=== PATIENT | female | born 1985 | race Caucasian/White ===

== ENCOUNTER 2022-12-19 11:22 | Emergency (ER) | payer OTHER, SELFPAY ==
[2022-12-19 11:29] VITALS: BP 140/70; PULSE 85; RESP 16; TEMP 36.6; O2SAT 98; BMI 35.5
--- NOTE | 2022-12-19 12:11 | ED_ITS ---
HPI - Back Pain/Injury <Blanca Velasco PA-C - Last Filed: 12/19/22 14:06> General Chief Complaint: Back Pain/Injury Stated Complaint: Lower Left back pain Time Seen by Provider: 12/19/22 11:59 Source: patient History of Present Illness HPI Narrative: Patient is a 36-year-old female with acute on chronic back pain. She reports many years of back pain. Had an MRI several years ago that showed 3 bulging discs including was pushing on the sciatic nerve. This most recent flare of pain has been about 1 week, she has been taking tramadol and cyclobenzaprine left over from a previous prescription. Pain does not seem to be getting better in the medicines are not helping. She is also taking ibuprofen. She denies any loss of bowel or bladder control, saddle anesthesia, weakness. She does not recall a specific injury or movement that precipitated this round of pain. Related Data Home Medications Medication Instructions Recorded Confirmed etonogestrel 0.12 mg-ethinyl vag ring vaginal 10/31/22 10/31/22 estradiol 0.015 mg/24 hr vaginal ring (EluRyng) Previous Rx's Medication Instructions Recorded methocarbamol 500 mg tablet 1,500 mg (3 x 500 mg) PO TID PRN 12/19/22 back pain #30 tabs prednisone 50 mg tablet 50 mg PO DAILY back pain #4 tabs 12/19/22 Allergies Allergy/AdvReac Type Severity Reaction Status Date / Time No Known Drug Allergies Allergy Unverified 10/31/22 13:42 Review of Systems <Blanca Velasco PA-C - Last Filed: 12/19/22 14:06> Review of Systems ROS Unobtainable: All systems reviewed & are unremarkable except as noted in HPI and below Patient History <Blanca Velasco PA-C - Last Filed: 12/19/22 14:06> Medical History Chronic back pain Social History Smoking Status: Never smoker Smoking Status: Never smoker Substance Use Type: does not use Exam <Blanca Velasco PA-C - Last Filed: 12/19/22 14:06> Narrative Exam Narrative: GENERAL: 36 year old patient appears stated age. Well-developed patient, in mild distress. NEURO: AOx3. 5/5 strength in bilateral lower extremities, ambulates with discomfort. HEAD: Atraumatic. Normocephalic. EYES: Pupils equal round and reactive. Extraocular motions intact. No scleral icterus. No injection or drainage. ENT: Nose without bleeding or purulent drainage. Airway patent. RESPIRATORY: No distress, no increased work of breathing SPINE: No midline tenderness or step-offs. Left-sided paraspinal tenderness to palpation. EXTREMITIES: No edema or joint tenderness. SKIN: No rash or erythema of visible areas Initial Vital Signs Initial Vital Signs: Vital Signs Temperature 98 F 12/19/22 11:29 Pulse Rate 85 12/19/22 11:29 Respiratory Rate 16 12/19/22 11:29 Blood Pressure 140/70 12/19/22 11:29 Pulse Oximetry 98 12/19/22 11:29 Oxygen Delivery Method Room Air 12/19/22 11:29 <Nelson Paul MD - Last Filed: 12/25/22 08:06> Initial Vital Signs Initial Vital Signs: Vital Signs Temperature 98 F 12/19/22 11:29 Pulse Rate 85 12/19/22 11:29 Respiratory Rate 16 12/19/22 11:29 Blood Pressure 140/70 12/19/22 11:29 Pulse Oximetry 98 12/19/22 11:29 Oxygen Delivery Method Room Air 12/19/22 11:29 Course <Blanca Velasco PA-C - Last Filed: 12/19/22 14:06> Orders Ordered: Discontinued Medications Ketorolac Tromethamine (Ketorolac 30 Mg/Ml Vial) 30 mg IM NOW ONE Stop: 12/19/22 12:12 Last Admin: 12/19/22 12:17 Dose: 30 mg Documented By: CTS Vital Signs Vital signs: Vital Signs - 8 hr 12/19/22 11:29 Temperature 98 F Pulse Rate 85 Respiratory Rate 16 Blood Pressure 140/70 Pulse Oximetry 98 Oxygen Delivery Method Room Air <Nelson Paul MD - Last Filed: 12/25/22 08:06> Orders Ordered: Discontinued Medications Ketorolac Tromethamine (Ketorolac 30 Mg/Ml Vial) 30 mg IM NOW ONE Stop: 12/19/22 12:12 Last Admin: 12/19/22 12:17 Dose: 30 mg Documented By: CTS Vital Signs Vital signs: Vital Signs - 8 hr 12/19/22 11:29 Temperature 98 F Pulse Rate 85 Respiratory Rate 16 Blood Pressure 140/70 Pulse Oximetry 98 Oxygen Delivery Method Room Air MDM - Back Pain/Injury <Blanca Velasco PA-C - Last Filed: 12/19/22 14:06> MDM Narrative Medical decision making narrative: Multiple etiologies for patient's symptoms considered including, but not limited to: Musculoskeletal back pain, cauda equina, fracture. Patient reports previous MRI with bulging discs, imaging report not available for me to review today. She is no red flag signs of cauda equina syndrome and no mechanism to suggest fracture. After discussing previous treatments and current treatment, patient is agreeable to trying IM Toradol now, short course of p.o. steroids and changing from cyclobenzaprine to methocarbamol. Advised her to continue taking ibuprofen and/or Tylenol (although no ibuprofen until tomorrow given Toradol) and using ice. She suggested chiropractic has been useful for her in the past. Return precautions discussed. Patient's symptoms improved over duration of stay with above-stated therapies. Findings and discharge diagnosis discussed with patient/family followed by verbalization of understanding Return precautions discussed with patient/family whom verbalize understanding of diagnosis and plan Discharge Plan Departure Patient Disposition: Home Clinical Impression: Low back pain with left-sided sciatica Instructions: DI for Back Pain With Sciatica Activity Restrictions/Additional Instructions: *You have been diagnosed with chronic low back pain in acute flare with left- sided sciatica. As we discussed, sometimes a short course of oral steroids can help calm down the inflammation and irritation of the sciatic nerve and help relieve your symptoms. We will do this, as well as try a different muscle relaxer. You will receive a shot of Toradol while in the emergency department. Please follow-up with your primary care for further management and consideration of referral to physical therapy or chiropractor. *What to do: *Please continue to take your regular medications as directed. [x] New medication prescriptions sent to your pharmacy: [facility] [ ] New medication written as a paper prescription [ ] No new medications given *Please follow up with your primary care provider in 2-3 days, call for an appointment. Let them know you were seen in the Emergency Department and that we ask that you be seen in follow up. We will electronically transmit a record of today's note if your PCP is in our system *If you do not have a primary care provider please contact the [facility] Resource line at [phone]. They will ask some questions about your medical history and help get you set up with a doctor in the community. *Return to Emergency Department if you should have any new, worsening or concerning symptoms, such as [fever greater than 101 F, shaking chills, worsening pain, persistent vomiting or other concerning symptoms]. Prescriptions: New methocarbamol 500 mg tablet 1,500 mg PO TID PRN (Reason: back pain) Qty: 30 0RF prednisone 50 mg tablet 50 mg PO DAILY Qty: 4 0RF No Action etonogestrel-ethinyl estradiol [EluRyng] 0.12-0.015 mg/24 hr ring vaginal Referrals: Provider,Christina RAHMAN [Primary Care Provider] - Stand Alone Forms: Patient Portal/API, Work Release Note ED Sign-out <Nelson Paul MD - Last Filed: 12/25/22 08:06> Cosign ED Attending Jadaature Attestation: I was immediately available in the department for consultation. ?This documentation has been reviewed and I agree with assessment and plan. Supervised by Nelson Paul MD
[2022-12-19] MEDS: KETOROLAC 30 MG/ML VIAL IM (12:17)
== END 2022-12-19 12:21 | disposition home or self-care (01) ==
PROVIDERS: Emergency Provider Physician Assistant
DX: M54.42 Lumbago with sciatica, left side (principal)
CPT/HCPCS: 96372; 99283; J1885

== ENCOUNTER → 2023-01-17 07:27 | Outpatient (CLI) | payer OTHER, SELFPAY ==
--- NOTE | 2023-01-17 07:30 | DI.RAD.S_ITS ---
PROCEDURE: XR LUMBAR SPINE MIN 4V INDICATIONS: BACK PAIN TECHNIQUE: 5 views of the lumbar spine were acquired, including bilateral oblique views. COMPARISON: None. FINDINGS: Bones: 5 nonrib-bearing vertebrae are present. Disc height loss at L5-S1. There is normal bony alignment. No vertebral body compression fractures. No suspicious bony lesions. Soft tissues: Overlying bowel gas pattern is normal. No suspicious soft tissue calcifications. Oblique images: No pars defects. IMPRESSION: Intervertebral disc height loss at L5-S1. Otherwise, normal lumbar spine. Dictated by: Desmond Rodriguez M.D. on 01/17/2023 at 8:49 Approved by: Desmond Rodriguez M.D. on 01/17/2023 at 8:50
== END ==
PROVIDERS: Referring Provider Anesthesiology; Visit Provider Anesthesiology
DX: M51.16 Intervertebral disc disorders with radiculopathy, lumbar region (principal)
CPT/HCPCS: 72110; 99214

== ENCOUNTER → 2023-01-30 12:09 | Outpatient (CLI) | payer OTHER, SELFPAY ==
--- NOTE | 2023-01-30 12:11 | DI.MRI.S_ITS ---
PROCEDURE: MR LUMBAR SPINE WO CON INDICATIONS: Lumbar radiculopathy TECHNIQUE: Noncontrast sagittal T1 spin echo and T2 fast echo, sagittal STIR, and T2 fast spin echo through the lumbar spine. In cases with scoliosis, additional coronal T2 fast spin echo may be performed. COMPARISON: [facility], CR, XR LUMBAR SPINE MIN 4V, 01/17/2023, 7:45. FINDINGS: Image quality: Excellent. Alignment and Curvature: There is normal bony alignment. Bone Marrow: Marrow is of normal overall signal. No acute vertebral body compression fractures. Spinal Cord: Conus medullaris terminates at the L1 level. Visualized cord demonstrates normal signal and size. Paraspinous Soft Tissues: No paravertebral masses. T12-L1: Normal appearance. L1-L2: Normal appearance. L2-L3: Mild facet hypertrophy. No canal stenosis or foraminal stenosis. L3-L4: Mild facet hypertrophy. No canal stenosis or foraminal stenosis. L4-L5: Mild disc bulge. Facet hypertrophy. No significant canal stenosis or foraminal stenosis. L5-S1: Moderately large focal left paracentral disc protrusion significantly impinging on the left S1 nerve root in the left lateral recess. There is mild left foraminal disc bulge or disc protrusion mildly impinging on the aspect left L5 nerve root in the left foramen inferomedially. There is facet hypertrophy. IMPRESSION: 1. There is mild underlying multilevel facet arthropathy. 2. At L5-S1, there is a left paracentral disc protrusion which significantly impinges on the left S1 nerve root in the left lateral recess. Disc material also mildly impinges on the left L5 nerve root in the medial aspect of the left foramen. Dictated by: Conrado Santoyo M.D. on 01/30/2023 at 20:06 Approved by: Conrado Santoyo M.D. on 01/30/2023 at 20:12
== END ==
PROVIDERS: Referring Provider Anesthesiology; Visit Provider Anesthesiology
DX: M47.26 Other spondylosis with radiculopathy, lumbar region (principal); M51.26 Other intervertebral disc displacement, lumbar region
CPT/HCPCS: 72148

== ENCOUNTER 2023-03-06 09:30 | Outpatient (CLI) | payer OTHER, SELFPAY ==
[2023-03-06] VITALS (8 sets, daily range): BP systolic 108–141; BP diastolic 67–88; PULSE 59–74; RESP 16–25; TEMP 36; O2SAT 100
--- NOTE | 2023-03-06 10:30 | DI.RAD.S_ITS ---
PROCEDURE: PAIN L/S TRANSFORAMINAL INJECT INDICATIONS: radiculopathy COMPARISON: None. FINDINGS: Fluoroscopic spot filming was performed to verify placement of spinal needles at the left L5-S1 level(s), as labeled on the films. Appropriate location(s) of the needle tip(s) was confirmed by injection of iodinated contrast. IMPRESSION: Fluoroscopic guidance utilized for a transforaminal epidural steroid injection. Dictated by: Keshawn Vega M.D. on 03/06/2023 at 12:29 Approved by: Keshawn Vega M.D. on 03/06/2023 at 12:29
[2023-03-06] MEDS: MIDAZOLAM 2 MG/2 ML VIAL IV (10:40)
[2023-03-06] MEDS: iopamidoL 15 ML VIAL 3 ML INJ (10:44)
[2023-03-06] MEDS: DEXAMETHASONE 10 MG/ML VIAL INJ (10:44)
--- NOTE | 2023-03-06 11:38 | P.PCN_ITS ---
Date/Time/Diagnoses Date of procedure: 03/06/23 Time of procedure: 10:30 Procedure Notes Physician: Walter Brasher Total Fluoroscopy time (seconds): 24 Total sedation minutes: 14 Procedure in detail & Post-procedure care: Left L5-S1 Transforaminal Epidural Steroid Injection Indications: Alexandra is presenting for treatment of lumbar radiculopathy with low back and leg pain. Preoperative diagnosis: Lumbar radiculopathy Postoperative diagnosis: Same Focused Examination: Ax3 Mood and affect are normal Vital Signs: VSS ASA: 2 Consent: Following review of allergies and potential side effects/complications, including, but not necessarily limited to, infection, allergic reaction, local tissue breakdown, stroke, temporary or permanent nerve injury, paralysis, and possible , the patient indicated that they understood and agreed to proceed.? An informed consent document was signed by the patient, witnessed by a nurse and placed in the patient's chart.? Additionally, other treatment options including medications and physical therapy were reviewed with the patient. All questions were answered. Site was then marked. Anesthesia: After review of previous anesthetic history and IV conscious sedation, the patient was deemed safe to proceed with today's procedure with IV conscious sedation. IV sedation was accomplished with midazolam 2 mg administered by the RN after order by Dr. Brasher. Sedation was titrated to patient comfort during the course of the procedure. Patient remained responsive to all verbal commands. Position: Prone Monitoring: NIBP, Pulse oximetry, 3 lead EKG Needle used: 22G 5 inch spinal needle Contrast: Isovue 300M Injectate: 10 mg Dexamethasone mixed with 1% lidocaine 1 ml and normal saline 1 mL Technique: The skin was prepped with chloraprep and draped in a sterile fashion. Time out was performed as per protocol. Oxygen applied via NC. Skin and subcutaneous structures of the needle entry site were infiltrated with 3mL of lidocaine 1%. Under fluoroscopic guidance, using an ipsilateral oblique view,?a 22 gauge 5 inch needle was advanced to the base of the left L5?pedicle.? The needle was advanced to the superio-posterior aspect of the neural foramen under lateral view.? Oblique and AP views were rechecked. No paresthesias noted by the patient during needle placement. In AP view and utilizing real-time digital subtraction fluoroscopy, 2 ml contrast was slowly injected. Epidural spread was observed without evidence for intravascular nor intrathecal uptake. Contrast spread was seen craniocaudally. The above injectate was then administered without paresthesias and the needle was subsequently withdrawn. Band-Aids applied to injection sites. EBL: less than 1 ml Complications: None Post Procedure: Patient was taken to the recovery and monitored. The patient was provided a Pain Log to continue to record the patient's response to the target- specific procedure prior to the patient's follow-up visit with the referring physician. Patient was stable upon discharge. Detailed post procedure instructions were provided. Patient was asked to call in the event of worsening pain, fever, weakness, numbness or bladder or bowel incontinence.
--- NOTE | 2023-03-07 13:22 | PC.NURSE ---
post procedure call- LVM to call clinic if has an question or concerns
== END 2023-03-06 11:13 | disposition home or self-care (01) ==
PROVIDERS: Referring Provider Anesthesiology; Visit Provider Anesthesiology
DX: M54.16 Radiculopathy, lumbar region (principal)
CPT/HCPCS: 64483; 99152; J1100; J2250

== ENCOUNTER 2023-08-07 10:19 | Outpatient (CLI) | payer OTHER, SELFPAY ==
[2023-08-07] VITALS (9 sets, daily range): BP systolic 111–123; BP diastolic 57–81; PULSE 65–74; RESP 11–20; TEMP 36.7; O2SAT 99–100
--- NOTE | 2023-08-07 11:00 | DI.RAD.S_ITS ---
PROCEDURE: PAIN SI JOINT INJECTION INDICATIONS: SI JOINT DYSFUNCTION COMPARISON: None. FINDINGS: Fluoroscopic spot filming was performed to verify placement of spinal needles at the left SI joint level(s), as labeled on the films. Appropriate location(s) of the needle tip(s) was confirmed by injection of iodinated contrast. IMPRESSION: Intraoperative guidance provided. Dictated by: Rudy Puentes M.D. on 08/07/2023 at 16:24 Approved by: Rudy Puentes M.D. on 08/07/2023 at 16:24
[2023-08-07] MEDS: MIDAZOLAM 2 MG/2 ML VIAL IV (11:04)
[2023-08-07] MEDS: DEXAMETHASONE 10 MG/ML VIAL INJ (11:07)
[2023-08-07] MEDS: BUPIVACAINE 0.25% (PF) VIAL 2 ML INJ (11:07)
[2023-08-07] MEDS: iopamidoL 15 ML VIAL 3 ML INJ (11:07)
--- NOTE | 2023-08-07 11:26 | P.PCN_ITS ---
Date/Time/Diagnoses Date of procedure: 08/07/23 Time of procedure: 11:00 Procedure Notes Physician: Walter Brasher Total Fluoroscopy time (seconds): 12 Total sedation minutes: 10 Procedure in detail & Post-procedure care: Left Sacroiliac Joint Injection Indications: Alexandra is presenting for treatment of SI joint dysfunction with low back/buttock pain. Preoperative diagnosis: Left SI joint dysfunction Postoperative diagnosis: Same Focused Examination: Ax3 Mood and affect are normal Vital Signs: VSS ASA: 2 Consent: Following review of allergies and potential side effects/complications, including, but not necessarily limited to, infection, allergic reaction, local tissue breakdown, stroke, temporary or permanent nerve injury, paralysis, and possible , the patient indicated that they understood and agreed to proceed.? An informed consent document was signed by the patient, witnessed by a nurse and placed in the patient's chart.? Additionally, other treatment options including medications and physical therapy were reviewed with the patient. All questions were answered. Site was then marked. Anesthesia: After review of previous anesthetic history and IV conscious sedation, the patient was deemed safe to proceed with today's procedure with IV conscious sedation. IV sedation was accomplished with midazolam 2 mg administered by the RN after order by Dr. Brasher. Sedation was titrated to patient comfort during the course of the procedure. Patient remained responsive to all verbal commands. Position: Prone Monitoring: NIBP, Pulse oximetry, 3 lead EKG Needle used: 22 ga, 3.5 inch spinal Contrast: 2 mL Isovue M-300 Injectate: Dexamethasone 10 mg with 0.25% bupivacaine 1 mL Technique: The skin was prepped with chloraprep and then draped in a sterile fashion. Time out was performed as per protocol. Oxygen applied via NC. Skin and subcutaneous structures of the needle entry site was then infiltrated with 5 mL of lidocaine 1%. Under AP and lateral fluoroscopic control, the spinal needle was guided into the left sacroiliac joint. 1 mL contrast was injected and was consistent with intra-articular placement. There was no evidence for intravascular uptake. After negative aspiration, the above-mentioned injectate w as then slowly administered and the needle withdrawn. The patient expressed no unusual discomfort or paresthesias during the injection. EBL: less than 1 ml Complications: None Post Procedure: Patient was taken to the recovery and monitored. The patient was provided a Pain Log to continue to record the patient's response to the target- specific procedure prior to the patient's follow-up visit with the referring physician. Patient was stable upon discharge. Detailed post procedure instructions were provided. Patient was asked to call in the event of worsening pain, fever, weakness, numbness or bladder or bowel incontinence.
--- NOTE | 2023-08-07 11:40 | PC.NURSE ---
Work Note Patient sent home with work note from Dr. Brasher.
== END 2023-08-07 11:40 | disposition home or self-care (01) ==
PROVIDERS: Referring Provider Anesthesiology; Visit Provider Anesthesiology
DX: M53.3 Sacrococcygeal disorders, not elsewhere classified (principal)
CPT/HCPCS: 27096; 99152; J1100; J2250; J3490